=== PATIENT | female | born 1990 | race Caucasian/White ===

== ENCOUNTER 2017-02-02 17:14 | Emergency (ER) | payer OTHER ==
[2017-02-02 22:22] LABS: HEMOGLOBIN 13.2 gm/dl (12.3-15.3); RED BLOOD COUNT 4.18 M/UL (4.00-5.10); WHITE BLOOD COUNT 10.1 K/UL (4.5-11.0)
[2017-02-02 22:38] LABS: BUN/CREATININE RATIO 10 (0-10)
== END 2017-02-02 23:46 | disposition home or self-care (01) ==
LOC: ER1 17:14
PROVIDERS: Emergency Medicine
DX: R10.9 Unspecified abdominal pain (principal); R11.0 Nausea; R19.7 Diarrhea, unspecified; Z88.5 Allergy status to narcotic agent; Z88.8 Allergy status to other drugs, medicaments and biological substances; Z91.040 Latex allergy status
CPT/HCPCS: 36415; 80053; 83690; 85025; 96361; 96374; 99284; J2930

== ENCOUNTER 2017-03-12 18:21 | Emergency (ER) | payer OTHER ==
[2017-03-12 19:44] LABS: RED BLOOD COUNT 4.19 M/UL (4.00-5.10); WHITE BLOOD COUNT 8.1 K/UL (4.5-11.0)
[2017-03-12 20:08] LABS: BUN/CREATININE RATIO 8 (0-10)
== END 2017-03-12 20:45 | disposition home or self-care (01) ==
LOC: ER1 18:21
PROVIDERS: Emergency Medicine
DX: N30.90 Cystitis, unspecified without hematuria (principal); R19.7 Diarrhea, unspecified; F32.9 Major depressive disorder, single episode, unspecified; F17.210 Nicotine dependence, cigarettes, uncomplicated; Z88.5 Allergy status to narcotic agent; Z91.040 Latex allergy status; Z90.49 Acquired absence of other specified parts of digestive tract; Z79.899 Other long term (current) drug therapy
CPT/HCPCS: 80053; 81001; 82150; 83690; 84703; 85025; 96374; 99284; J7030